=== PATIENT | male | born 1980 | race Caucasian/White ===

== ENCOUNTER → 2021-03-18 | Outpatient (CLI) | payer BC ==
--- NOTE | 2021-03-21 10:12 | XR ---
EXAMINATION TYPE: XR foot complete RT DATE OF EXAM: 03/18/2021 COMPARISON: NONE HISTORY: Soft tissue sore TECHNIQUE: Three views are submitted. FINDINGS: The osseous structures are intact. There is no acute fracture or dislocation. Hypertrophic arthrop athy first MTP. Hammertoe deformities are seen and there is spurring along the fifth metatarsal. Calcaneal spurs are noted. Appears to be soft tissue prominence adjacent first MTP. IMPRESSION: 1. Hypertrophic arthropathy first MTP. There is adjacent soft tissue edema.
== END | disposition home or self-care (01) ==
LOC: RADXRYALE 16:15
PROVIDERS: ATTEND Physician Assistant Medical
DX: M79.89 Other specified soft tissue disorders (principal); M12.871 Other specific arthropathies, not elsewhere classified, right ankle and foot

== ENCOUNTER 2024-03-06 20:23 | Emergency (ER) | payer BC, OTHER ==
[2024-03-06 20:47] VITALS: TEMP 98.1
--- NOTE | 2024-03-06 20:56 | XR ---
EXAMINATION TYPE: XR ankle complete RT DATE OF EXAM: 03/06/2024 8:47 PM CLINICAL INDICATION:Male, 43 years old with history of Injury; H COMPARISON: None TECHNIQUE: The right ankle is imaged in frontal, lateral and oblique projections. FINDINGS: There is a mildly displaced obliquely oriented fracture involving the medial aspect of the fibula wit h apex medial angulation. There is widening of the medial ankle joint space with tiny ossific fragmen ts in the region. The tibia appears intact. No evidence of subtalar joint subluxation. Kager's fat pa d is intact. Superficial soft tissue edema surrounding the ankle joint. IMPRESSION: 1. Mildly displaced and angulated fracture of the distal fibular metadiaphysis. 2. Widened medial ankle joint space with suspected avulsion injuries, most likely related to ligament ous disruption.
--- NOTE | 2024-03-06 22:56 | ED ---
Lower Extremity Injury HPI - General Chief Complaint: Extremity Injury, Lower Stated Complaint: broken ankle Time Seen by Provider: 03/06/24 21:30 Source: patient, RN notes reviewed Mode of arrival: ambulatory Limitations: no limitations - History of Present Illness Initial Comments: 43-year-old male presenting with right ankle pain x 1 hour. States he was walking on the stairs when his ankle bent underneath him and he heard a crack. Patient has extreme pain with weightbearing. Admits diffuse swelling around the ankle. Denies numbness or tingling. - Related Data Allergies Allergy/AdvReac Type Severity Reaction Status Date / Time No Known Allergies Allergy Verified 03/06/24 20:34 Review of Systems ROS Statement: Those systems with pertinent positive or pertinent negative responses have been documented in the HPI. ROS Other: All systems not noted in ROS Statement are negative. Past Medical History Past Medical History: Diabetes Mellitus Past Surgical History: No Surgical Hx Reported Past Psychological History: No Psychological Hx Reported Smoking Status: Never smoker Past Alcohol Use History: Occasional Past Drug Use History: None Reported General Exam Limitations: no limitations General appearance: alert, in no apparent distress Head exam: Present: atraumatic, normocephalic, normal inspection Eye exam: Present: normal appearance, PERRL, EOMI. Absent: scleral icterus, conjunctival injection, periorbital swelling ENT exam: Present: normal exam, mucous membranes moist Right Knee exam: Present: normal inspection, full ROM. Absent: tenderness, swelling Lower Leg exam: Present: normal inspection, full ROM. Absent: tenderness, swelling Ankle exam: Present: tenderness, swelling. Absent: normal inspection (Diffuse edema and tenderness along lateral and medial malleolus. Limited range of motion of the ankle. Full sensation of right foot and full range of motion of all digits. Dorsalis pedis pulses intact. Cap refill less than 2 seconds.), full ROM Foot/Toe exam: Present: normal inspection, full ROM. Absent: tenderness, swelling Course Vital Signs 03/06/24 03/06/24 20:32 23:23 Temperature 98.1 F Pulse Rate 100 86 Respiratory 20 16 Rate Blood Pressure 152/89 150/90 O2 Sat by Pulse 97 96 Oximetry Procedures - Orthopedic Joint Reduction Joint #1 Consent Obtained: verbal consent Side: right Joint Reduction Location: ankle Analgesia: none Technique Used: direct manipulation Post-Reduction Neuro Exam: intact Post-Reduction Vascular Exam: intact Post Reduction X-Ray Obtained: Yes Post Reduction X-Ray Results: reduced Splint Applied: Yes (Posterior and saddle splint applied to right ankle.) Patient Tolerated Procedure: well, no complications Additional Comments: Neurovascularly intact status post splint Medical Decision Making - Medical Decision Making Was pt. sent in by a medical professional or institution (, PA, CLOTH PAINTER, urgent care, hospital, or long term...) When possible be specific @ -No Did you speak to anyone other than the patient for history (EMS, parent, family, police, friend...)? What history was obtained from this source @ -Patient's supplemented history Did you review nursing and triage notes (agree or disagree)? Why? @ -I reviewed and agree with nursing and triage notes Were old charts reviewed (outside hosp., previous admission, EMS record, old EKG, old radiological studies, urgent care reports/EKG's, long term records)? Report findings @ -No old charts were reviewed Differential Diagnosis (chest pain, altered mental status, abdominal pain women, abdominal pain men, vaginal bleeding, weakness, fever, dyspnea, syncope, headache, dizziness, GI bleed, back pain, seizure, CVA, palpatations, mental health, musculoskeletal)? @ -Differential Musculoskeletal Muscular strain, contusion, ligament sprain, fracture, arthritis, septic arthritis, bursitis, cellulitis, muscle spasm, nerve compression, DVT, arterial occlusion, herpes zoster, electrolyte abnormality, tumor.... This is not meant to be in all inclusive list EKG interpreted by me (3pts min.). @ -None X-rays interpreted by me (1pt min.). @ -X-ray revealed mildly displaced and angulated fracture of distal fibular metadiaphysis with widened medial ankle joint space with suspected avulsion injury. Repeat x-ray postreduction revealed mildly displaced fracture of the distal fibula however appears improved CT interpreted by me (1pt min.). @ -None done U/S interpreted by me (1pt. min.). @ -None done What testing was considered but not performed or refused? (CT, X-rays, U/S, labs)? Why? @ -None What meds were considered but not given or refused? Why? @ -None Did you discuss the management of the patient with other professionals (professionals i.e. , PA, CLOTH PAINTER, lab, RT, psych nurse, social service technician, manager acquisition, teacher, media liaison officer, complex case manager)? Give summary @ -No Was smoking cessation discussed for >3mins.? @ -No Was critical care preformed (if so, how long)? @ -No Were there social determinants of health that impacted care today? How? (Homelessness, low income, unemployed, alcoholism, drug addiction, transportation, low edu. Level, literacy, decrease access to med. care, [facility], rehab)? @ -No Was there de-escalation of care discussed even if they declined (Discuss DNR or withdrawal of care, Hospice)? DNR status @ -No What co-morbidities impacted this encounter? (DM, HTN, Smoking, COPD, CAD, Cancer, CVA, ARF, Chemo, Hep., AIDS, mental health diagnosis, sleep apnea, morbid obesity)? @ -None Was patient admitted / discharged? Hospital course, mention meds given and route, prescriptions, significant lab abnormalities, going to OR and other pertinent info. @ -Patient was discharged. Patient was seen and evaluated for right ankle pain x 1 hour after injury walking on the stairs. Patient is neurovascularly intact. X-ray revealed mildly displaced and angulated fracture of distal fibular metadiaphysis with a widened medial ankle joint space with suspected avulsion injury. Reduction performed and posterior and saddle splint applied. Repeat x- ray continued to show mildly displaced fracture of distal tibia however appears improved. Patient is neurovascularly intact status post procedures. Discussed diagnosis of fibular fracture with patient and . Strict return/alarm symptoms discussed with patient and and they show understanding and agree to plan. Patient given Tylenol threes for pain. They were given Ortho follow- up. Discharged in stable condition. Case discussed with Dr. Rocha who was present during reduction and splinting. Undiagnosed new problem with uncertain prognosis? @ -No Drug Therapy requiring intensive monitoring for toxicity (Heparin, Nitro, Insulin, Cardizem)? @ -No Were any procedures done? @ -Reduction of ankle and posterior/stirrup splint applied Diagnosis/symptom? @ -Right distal fibular fracture Acute, or Chronic, or Acute on Chronic? @ -Acute Uncomplicated (without systemic symptoms) or Complicated (systemic symptoms)? @ -Uncomplicated Side effects of treatment? @ -No Exacerbation, Progression, or Severe Exacerbation? @ -No Poses a threat to life or bodily function? How? (Chest pain, [place], [place], pneumonia, PE, COPD, DKA, ARF, appy, cholecystitis, CVA, Diverticulitis, Homicidal, Suicidal, threat to staff... and all critical care pts) @ -No Disposition Clinical Impression: Fracture of distal end of fibula Disposition: HOME SELF-CARE Condition: Stable Instructions (If sedation given, give patient instructions): Ankle Fracture (ED) Additional Instructions: Please follow-up with Ortho in 1 to 3 days. Please return to the Emergency Department if symptoms worsen or any other concerns. Is patient prescribed a controlled substance at d/c from ED?: No Referrals: Charles Lakhani DO [Primary Care Provider] - 1-2 days Mati Hernandez DO [Doctor of Osteopathic Medicine] - 1-2 days Time of Disposition: 22:56
[2024-03-06] MEDS: ACET/COD 300 MG/30 MG STARTER PACK 6 TAB BTL PO STA (23:11)
[2024-03-06 23:58] VITALS: BP 150/90; PULSE 86; RESP 16
--- NOTE | 2024-03-07 00:02 | XR ---
EXAM: XR Right Ankle Complete, 3 or More Views CLINICAL HISTORY: ITS.REASON XR Reason: repeat xr s/p reduction TECHNIQUE: Frontal, lateral and oblique views of the right ankle. COMPARISON: Earlier same day. FINDINGS: Bones/joints: Mildly displaced fracture of the distal fibula. Widening of the medial ankle mortise measures 1.5 cm. No dislocation. Soft tissues: Unremarkable. IMPRESSION: Mildly displaced fracture of the distal fibula. Widening of the medial ankle mortise measures 1.5 cm. Consider further attempt at reduction.
== END 2024-03-06 23:54 | disposition home or self-care (01) ==
LOC: EC 20:23
DX: S82.831A Other fracture of upper and lower end of right fibula, initial encounter for closed fracture (principal); X50.1XXA Overexertion from prolonged static or awkward postures, initial encounter
CPT/HCPCS: 27818; 99283

== ENCOUNTER 2024-03-07 15:26 | Observation (INO) | payer BC, OTHER ==
[2024-03-07] MEDS ORDERED: NALOXONE 0.4 MG/ML 1 ML VIAL IV PRN (16:42)
[2024-03-07] MEDS ORDERED: MORPHINE SULFATE 4 MG/ML SYRINGE IV PRN (16:42)
[2024-03-07] MEDS ORDERED: ONDANSETRON 4 MG/2 ML VIAL IVP PRN (16:42)
--- NOTE | 2024-03-07 16:49 | ED ---
Recheck HPI - General Chief Complaint: Recheck/Abnormal Lab/Rx Stated Complaint: R leg injury Time Seen by Provider: 03/07/24 15:59 Source: patient, RN notes reviewed, old records reviewed Mode of arrival: ambulatory Limitations: no limitations - History of Present Illness Initial Comments: This is a 43-year-old male to the ER today. Patient [facility] for evaluation of right ankle fracture. Patient was seen in the emergency room after a fall and ankle fracture yesterday patient was placed in a splint after interval reduction and discharged home. Patient is complaining of no new symptoms. Patient did call orthopedics today for follow-up for evaluation and was sent to the emergency department for further evaluation and monitoring MD Complaint: other (Right ankle fracture) -: days(s) (1) Returns Today for: persistent/worsening pain related to initial visit Symptoms Since Prior Visit: no new symptoms Context: planned re-check Associated Symptoms: none Treatments Prior to Arrival: Given Pain Meds on - Related Data Home Medications Medication Instructions Recorded Confirmed Atorvastatin [Lipitor] 20 mg PO DAILY 03/07/24 03/07/24 Citalopram Hydrobromide [CeleXA] 40 mg PO DAILY 03/07/24 03/07/24 glipiZIDE [Glucotrol] 5 mg PO DAILY 03/07/24 03/07/24 lisinopriL [Zestril] 20 mg PO DAILY 03/07/24 03/07/24 sitaGLIPtin PHOS/metFORMIN HCL 1 tab PO BID 03/07/24 03/07/24 [Janumet Xr 50-1,000 mg Tablet] Previous Rx's Medication Instructions Recorded Aspirin 325 mg PO BID #60 tab 03/08/24 HYDROcodone/APAP 7.5-325MG [Foster 1 each PO Q4-6H PRN #28 tab 03/08/24 7.5] Allergies Allergy/AdvReac Type Severity Reaction Status Date / Time No Known Allergies Allergy Verified 03/07/24 17:39 Review of Systems ROS Statement: Those systems with pertinent positive or pertinent negative responses have been documented in the HPI. ROS Other: All systems not noted in ROS Statement are negative. Past Medical History Past Medical History: Diabetes Mellitus Past Surgical History: No Surgical Hx Reported Past Psychological History: No Psychological Hx Reported Smoking Status: Never smoker Past Alcohol Use History: Occasional Past Drug Use History: None Reported General Exam - General Exam Comments Initial Comments: Patient has positive dorsalis pedis and posterior tibialis pulses right ankle Limitations: no limitations General appearance: alert, in no apparent distress Head exam: Present: atraumatic, normocephalic, normal inspection Eye exam: Present: normal appearance, PERRL, EOMI. Absent: scleral icterus, conjunctival injection, periorbital swelling ENT exam: Present: normal exam, mucous membranes moist Neck exam: Present: normal inspection. Absent: tenderness, meningismus, lymphadenopathy Respiratory exam: Present: normal lung sounds bilaterally. Absent: respiratory distress, wheezes, rales, rhonchi, stridor Cardiovascular Exam: Present: regular rate, normal rhythm, normal heart sounds. Absent: systolic murmur, diastolic murmur, rubs, gallop, clicks GI/Abdominal exam: Present: soft, normal bowel sounds. Absent: distended, tenderness, guarding, rebound, rigid Extremities exam: Present: normal inspection, full ROM, normal capillary refill. Absent: tenderness, pedal edema, joint swelling, calf tenderness Back exam: Present: normal inspection Neurological exam: Present: alert, oriented X3, CN II-XII intact Psychiatric exam: Present: normal affect, normal mood Skin exam: Present: warm, dry, intact, normal color. Absent: rash Course Vital Signs 03/07/24 03/07/24 15:41 19:00 Temperature 98.4 F Pulse Rate 98 85 Respiratory 20 20 Rate Blood Pressure 139/91 147/85 O2 Sat by Pulse 99 98 Oximetry - Reevaluation(s) Reevaluation #1: 03/07/24 17:21 Medical records reviewed Reevaluation #2: 03/07/24 17:21 Patient symptoms unchanged Reevaluation #3: 03/07/24 17:21 Patient informed of results questions answered Reevaluation #4: Was pt. sent in by a medical professional or institution (, PA, COMBINATION MAN, urgent care, hospital, or detention...) When possible be specific @ -no Did you speak to anyone other than the patient for history (EMS, parent, family, police, friend...)? What history was obtained from this source @ -no Did you review nursing and triage notes (agree or disagree)? Why? @ -agree Are old charts reviewed (outside hosp., previous admission, EMS record, old EKG, old radiological studies, urgent care reports/EKG's, detention records)? Report findings @ -yes Differential Diagnosis (chest pain, altered mental status, abdominal pain women, abdominal pain men, vaginal bleeding, weakness, fever, dyspnea, syncope, headache, dizziness, GI bleed, back pain, seizure, CVA, palpatations, mental health, musculoskeletal)? @ -prior EKG interpreted by me (3pts min.). @ -yes X-rays interpreted by me (1pt min.). @ -yes negative for acute disease CT interpreted by me (1pt min.). @ -no U/S interpreted by me (1pt. min.). @ -no What testing was considered but not performed or refused? (CT, X-rays, U/S, labs)? Why? @ -none What meds were considered but not given or refused? Why? @ -none Did you discuss the management of the patient with other professionals (professionals i.e. , PA, COMBINATION MAN, lab, RT, psych nurse, social services director, supervisor typesetting, teacher, military source operations officer, medical case manager)? Give summary @ -no Was smoking cessation discussed for >3mins.? @ -no Was critical care preformed (if so, how long)? @ -no Were there social determinants of health that impacted care today? How? (Homelessness, low income, unemployed, alcoholism, drug addiction, transportation, low edu. Level, literacy, decrease access to med. care, correction, rehab)? @ -none Was there de-escalation of care discussed even if they declined (Discuss DNR or withdrawal of care, Hospice)? DNR status @ -no What co-morbidities impacted this encounter? (DM, HTN, Smoking, COPD, CAD, Cancer, CVA, ARF, Chemo, Hep., AIDS, mental health diagnosis, sleep apnea, morbid obesity)? @ -none Was patient admitted / discharged? Hospital course, mention meds given and route, prescriptions, significant lab abnormalities, going to OR and other pertinent info. @ - 43 male to ER for evaluation of severe ankle pain right ankle pain. Patient will be admitted for right ankle fracture dislocation, patient had fall yesterday will admit to surgery Admitted Undiagnosed new problem with uncertain prognosis? @ -no Drug Therapy requiring intensive monitoring for toxicity (Heparin, Nitro, Insulin, Cardizem)? @ -no Were any procedures done? @ -no Diagnosis/symptom? @ -Fall with fracture dislocation of ankle Acute, or Chronic, or Acute on Chronic? @ -Acute Uncomplicated (without systemic symptoms) or Complicated (systemic symptoms)? @ -Complicated Side effects of treatment? @ -no Exacerbation, Progression, or Severe Exacerbation? @ -exacerbation Poses a threat to life or bodily function? How? (Chest pain, [place], [place], pneumonia, PE, COPD, DKA, ARF, appy, cholecystitis, CVA, Diverticulitis, Homicidal, [place] icidal, threat to staff... and all critical care pts) @ -yes Limited right with dislocation of ankle - Consultations Consultation #1: Dr. Gibbs who will like this patient admitted for surgical evaluation and consultation Medical Decision Making - Medical Decision Making 43 male to ER for evaluation of severe ankle pain right ankle pain. Patient will be admitted for right ankle fracture dislocation, patient had fall yesterday will admit to surgery - Lab Data Result diagrams: 03/08/24 05:51 03/08/24 05:51 - EKG Data -: EKG Interpreted by Me (EKG is sinus 87 AR 138 QRS 94 QTc 387) - Radiology Data Radiology results: report reviewed (Right ankle acute fracture dislocation), i mage reviewed Disposition Clinical Impression: Fracture dislocation of right ankle, Fracture of distal end of fibula Disposition: ADMITTED IP TO THIS HOSP Condition: Fair Is patient prescribed a controlled substance at d/c from ED?: No Time of Disposition: 17:20
[2024-03-07] MEDS: SODIUM CHLORIDE 0.9% 1,000 ML IV SCH (17:08)
[2024-03-07] MEDS: MORPHINE SULFATE 4 MG/ML SYRINGE IV STA (17:09)
[2024-03-07 17:18] LABS: INR 0.8 (<1.2); Prothrombin Time 9.6 sec (10.0-12.5)
[2024-03-07 17:20] LABS: ALT 29 U/L (4-49); AST 27 U/L (17-59); African American GFR (CKD) >90 (>60 ml/min/1.73 sqM); Albumin 3.7 g/dL (3.5-5.0); Alkaline Phosphatase 100 U/L (38-126); Anion Gap 6 mmol/L; Blood Urea Nitrogen 21 mg/dL (9-20); Calcium 9.1 mg/dL (8.4-10.2); Carbon Dioxide 22 mmol/L (22-30); Chloride 106 mmol/L (98-107); Glucose 222 mg/dL (74-99); Non-African American GFR(CKD) >90 (>60 ml/min/1.73 sqM); Potassium 4.2 mmol/L (3.5-5.1); Sodium 134 mmol/L (137-145); Total Bilirubin 0.6 mg/dL (0.2-1.3); Total Protein 6.5 g/dL (6.3-8.2)
[2024-03-07 17:21] LABS: Basophils % (A) 0 %; Eosinophils # (A) 0.1 k/uL (0-0.7); Eosinophils % (A) 1 %; HCT 44.6 % (39.0-53.0); HGB 15.5 gm/dL (13.0-17.5); Lymphocytes # (A) 2.6 k/uL (1.0-4.8); Lymphocytes % (A) 22 %; MCH 31.1 pg (25.0-35.0); MCHC 34.8 g/dL (31.0-37.0); MCV 89.3 fL (80.0-100.0); Mean Platelet Volume 9.4; Monocytes # (A) 0.9 k/uL (0-1.0); Monocytes % (A) 7 %; Neutrophils # (A) 7.9 k/uL (1.3-7.7); Neutrophils % (A) 68 %; Platelet Count 214 k/uL (150-450); RBC 4.99 m/uL (4.30-5.90); WBC 11.7 k/uL (3.8-10.6)
--- NOTE | 2024-03-07 18:50 | XR ---
EXAMINATION TYPE: XR ankle limited RT DATE OF EXAM: 03/07/2024 COMPARISON: 03/06/2024 earlier exam HISTORY: Fracture TECHNIQUE: 2 view right ankle through a fiberglass splint FINDINGS: There is subluxation of the talus laterally approximately one half of the tibial shaft with . There is a long oblique fracture through the distal fibula. Overlying soft tissue swelling is prese nt. No additional fractures are evident. Calcaneal heel spurs are present. IMPRESSION: 1. Stable appearance of a subluxation of the talus laterally in relation to the distal right tibia. 2. Oblique fracture distal right fibula
[2024-03-07 20:58] LABS: Glucose,Whole Blood 164 mg/dL (70-110)
[2024-03-08 05:47] LABS: Glucose,Whole Blood 327 mg/dL (70-110)
[2024-03-08 09:02] LABS: Glucose,Whole Blood 303 mg/dL (70-110)
[2024-03-08] MEDS: LACTATED RINGERS 1,000 ML IV ONE (09:02)
[2024-03-08] MEDS: INSULIN ASPART (NovoLOG) 100 UNIT/ML VIAL SQ ONE ×2 (09:09→11:43)
[2024-03-08] MEDS: ONDANSETRON 4 MG/2 ML VIAL IVP ONE (09:09)
[2024-03-08 09:14] LABS: Basophils # (A) 0.05 X 10*3/uL (0.00-0.10); Basophils % (A) 0.5 %; Eosinophils # (A) 0.03 X 10*3/uL (0.04-0.35); Eosinophils % (A) 0.3 %; HCT 40.8 % (39.6-50.0); HGB 13.9 g/dL (13.0-17.0); Lymphocytes # (A) 2.72 X 10*3/uL (0.90-5.00); Lymphocytes % (A) 25.4 %; MCH 29.9 pg (27.0-32.0); MCHC 34.1 g/dL (32.0-37.0); MCV 87.7 FL (80.0-97.0); Mean Platelet Volume 12.1 FL (9.5-12.2); Monocytes # (A) 0.86 X 10*3/uL (0.20-1.00); NRBC Per 100 WBC 0 X 10*3/uL (0.00-0.01); Neutrophils # (A) 6.97 X 10*3/uL (1.80-7.70); Platelet Count 196 X 10*3/uL (140-440); RBC 4.65 X 10*6/uL (4.40-5.60); RDW 12.5 % (11.5-14.5); WBC 10.72 X 10*3/uL (4.50-10.00)
[2024-03-08] MEDS ORDERED: fentaNYL (PF) 50 MCG/ML 2 ML AMP ONE (09:20)
[2024-03-08] MEDS ORDERED: MIDAZOLAM 2 MG/2 ML VIAL ONE (09:20)
[2024-03-08] MEDS ORDERED: SUCCINYLCHOLINE CHLORIDE 200 MG/10 ML VIAL IV ONE (09:20)
[2024-03-08] MEDS ORDERED: LIDOCAINE 1% INJ 10MG/ML (20 ML MDV) ONE (09:20)
[2024-03-08] MEDS ORDERED: PROPOFOL 10 MG/ML 20 ML VIAL IV ONE (09:20)
--- NOTE | 2024-03-08 09:22 | P.HPOR ---
History of Present Illness H&P Date: 03/08/24 This is a 43 year old male who sustained a right ankle injury on 03/08/24 while walking down the stairs. He was seen in the ED that same day/night where attempt at closed reduction was performed and was discharged home. Imaging was viewed after outpatient referral was arranged and prior to patient following up in office the reduction was found to not be adequate and he returned to the ED for repeat reduction, possible ex-fix vs ORIF. He is a diabetic with peripheral neuropathy. He states he has not been in really any pain due to the lack of sensation in the foot. Past Medical History Past Medical History: Diabetes Mellitus History of Any Multi-Drug Resistant Organisms: None Reported Past Surgical History: No Surgical Hx Reported Additional Past Surgical History / Comment(s): toe removal Past Anesthesia/Blood Transfusion Reactions: No Reported Reaction Past Psychological History: No Psychological Hx Reported Smoking Status: Current every day smoker Past Alcohol Use History: Occasional Past Drug Use History: None Reported Medications and Allergies Home Medications Medication Instructions Recorded Confirmed Type Atorvastatin [Lipitor] 20 mg PO DAILY 03/07/24 03/07/24 History Citalopram Hydrobromide [CeleXA] 40 mg PO DAILY 03/07/24 03/07/24 History glipiZIDE [Glucotrol] 5 mg PO DAILY 03/07/24 03/07/24 History lisinopriL [Zestril] 20 mg PO DAILY 03/07/24 03/07/24 History sitaGLIPtin PHOS/metFORMIN HCL 1 tab PO BID 03/07/24 03/07/24 History [Janumet Xr 50-1,000 mg Tablet] Allergies Allergy/AdvReac Type Severity Reaction Status Date / Time No Known Allergies Allergy Verified 03/07/24 17:39 Physical Examination Osteopathic Statement: *. No significant issues noted on an osteopathic structural exam other than those noted in the History and Physical/Consult. - Ankle & Foot right Ankle appearance: swelling (Bruising/swelling present around medial/lateral ankle. EHL/FHL intact. Decreased sensation in L2-S1 distribution. 2+/4 DP/PT pulses palpated. Medial plantar callous present around first MTP joint.) Foot appearance: swelling Foot swelling: dorsal, plantar, medial, lateral Tenderness with palpation: anteromedial ankle, lateral ankle Results - Labs Labs: Abnormal Lab Results - Last 24 Hours (Table) 03/07/24 03/07/24 03/07/24 Range/Units 17:00 17:00 17:00 WBC 11.7 H (3.8-10.6) k/uL Neutrophils # 7.9 H (1.3-7.7) k/uL PT 9.6 L (10.0-12.5) sec Sodium 134 L (137-145) mmol/L BUN 21 H (9-20) mg/dL Creatinine 0.56 L (0.66-1.25) mg/dL Glucose 222 H (74-99) mg/dL POC Glucose (mg/dL) (70-110) mg/dL 03/07/24 03/08/24 Range/Units 20:57 05:46 WBC (3.8-10.6) k/uL Neutrophils # (1.3-7.7) k/uL PT (10.0-12.5) sec Sodium (137-145) mmol/L BUN (9-20) mg/dL Creatinine (0.66-1.25) mg/dL Glucose (74-99) mg/dL POC Glucose (mg/dL) 164 H 327 H (70-110) mg/dL H & H 03/07/24 Range/Units 17:00 Hgb 15.5 (13.0-17.5) gm/dL Hct 44.6 (39.0-53.0) % Coagulation 03/07/24 Range/Units 17:00 INR 0.8 (<1.2) Result Diagrams: 03/08/24 05:51 03/07/24 17:00 Assessment and Plan Assessment: 1.) Right ankle fracture dislocation 2.) Uncontrolled diabetes Plan: Case findings and imaging was discussed with the patient. We discussed the current alignment of his ankle fracture is outside of acceptable limits and he will require repeat reduction vs ex fix vs ORIF depending on soft tissue swelling. Risks and benefits of surgery including bleeding, infection, damage to surrounding tissue, need for further surgery was discussed and he wishes to proceed with surgical intervention. We discussed if definitive treatment is not able to be performed due to soft tissue swelling he will require definitive fixation in the near future. We discussed the complexity of his issue being that he is an uncontrolled diabetic and that healing can take several months and he is at a high risk for infection and wound complications. -Mati Hernandez DO Orthopedic Surgeon
[2024-03-08 09:25] LABS: ALT 27 U/L (10-49); AST 18 U/L (14-35); Albumin 3.6 g/dL (3.8-4.9); Albumin/Globulin Ratio 1.57 Ratio (1.60-3.17); Alkaline Phosphatase 87 U/L (41-126); BUN/Creat Ratio 22.86 Ratio (12.00-20.00); Calcium 8.7 mg/dL (8.7-10.3); Carbon Dioxide 22.2 mmol/L (21.6-31.8); Chloride 104 mmol/L (96-109); Globulin 2.3 g/dL (1.6-3.3); Glucose 308 mg/dL (70-110); Magnesium 1.6 mg/dL (1.5-2.4); Phosphorus 3.2 mg/dL (2.4-5.1); Potassium 4.5 mmol/L (3.5-5.5); Sodium 137 mmol/L (135-145); Total Bilirubin 0.4 mg/dL (0.3-1.2); Total Protein 5.9 g/dL (6.2-8.2)
[2024-03-08] MEDS ORDERED: HYDROcodone/APAP 7.5-325MG 1 EACH TAB PO PRN (10:02)
--- NOTE | 2024-03-08 10:17 | P.DS ---
Providers Date of admission: 03/07/24 16:43 Expected date of discharge: 03/08/24 Attending physician: Mati Hernandez DO Consults: 03/08/24 08:38 Consult Physician Routine Consulting Provider: Sj Dumont Reason/Comments: medical management Do you want consulting provider notified?: Yes Primary care physician: [facility] Course: Hospital Course: The patient was evaluated preoperatively and found to have the diagnosis of right ankle fracture with dislocation. They underwent appropriate preoperative care and were willing to undergo the intended procedure. They underwent a successful right ankle closed reduction with immobilization, were recovered appropriately and sent to the floor. Their pain was well controlled through their stay and they were started on appropriate medications, DVT ppx modalities, activity and dietary needs. Labs were monitored closely. Recommendation of home for this patient and treating providers agree with this care path. The patient will be discharged home with appropriate medications, instructions and follow-up information and in stable condition. Patient Condition at Discharge: Fair Plan - Discharge Summary Discharge Rx Participant: No New Discharge Prescriptions: New HYDROcodone/APAP 7.5-325MG [[place] 7.5] 1 each PO Q4-6H PRN #28 tab PRN Reason: Pain Aspirin 325 mg PO BID #60 tab No Action sitaGLIPtin PHOS/metFORMIN HCL [Janumet Xr 50-1,000 mg Tablet] 1 tab PO BID glipiZIDE [Glucotrol] 5 mg PO DAILY Atorvastatin [Lipitor] 20 mg PO DAILY lisinopriL [Zestril] 20 mg PO DAILY Citalopram Hydrobromide [CeleXA] 40 mg PO DAILY Discharge Medication List Atorvastatin [Lipitor] 20 mg PO DAILY 03/07/24 [History] Citalopram Hydrobromide [CeleXA] 40 mg PO DAILY 03/07/24 [History] glipiZIDE [Glucotrol] 5 mg PO DAILY 03/07/24 [History] lisinopriL [Zestril] 20 mg PO DAILY 03/07/24 [History] sitaGLIPtin PHOS/metFORMIN HCL [Janumet Xr 50-1,000 mg Tablet] 1 tab PO BID 03/07/24 [History] Aspirin 325 mg PO BID #60 tab 03/08/24 [Rx] HYDROcodone/APAP 7.5-325MG [[place] 7.5] 1 each PO Q4-6H PRN #28 tab 03/08/24 [Rx] Follow up Appointment(s)/Referral(s): Charles Lakhani DO [Primary Care Provider] - 1-2 days Mati Hernandez DO [Doctor of Osteopathic Medicine] - 03/14/24 Patient Instructions/Handouts: Closed Reduction (GEN) Activity/Diet/Wound Care/Special Instructions: Prescription for knee scooter placed in chart. Orthopedic Discharge Instructions: -Keep splint Clean and Dry -Non weight bearing of Left lower extremity with walker / crutches until follow- up. -Ice and elevate when necessary. Do not exceed 20 minutes per hour with ice pack. -Pain meds and anticoagulants per prescription. -Pain medication has potential to cause constipation. Increase oral fluid and fiber intake. Contact primary care provider if you have not had a bowel movement within 48 hours after discharge. -Follow up in office on 03/14/[address] Hernandez -Contact [facility] with any questions, . Discharge Disposition: HOME SELF-CARE
[2024-03-08 10:20] LABS: Glucose,Whole Blood 280 mg/dL (70-110)
[2024-03-08 10:53] VITALS: RESP 16; TEMP 97.8
--- NOTE | 2024-03-08 11:02 | P.OP ---
Date of Procedure: 03/08/24 Preoperative Diagnosis: 1.) Right ankle fracture/dislocation Postoperative Diagnosis: 1.) Right ankle fracture/dislocation Procedure(s) Performed: 1.) Closed reduction and splint application of right ankle fracture/dislocation Anesthesia: ARMINDA Surgeon: Mati Hernandez Youth Corrections Officer #1: Madeline Narayan Estimated Blood Loss (ml): 0 Pathology: none sent Condition: stable Disposition: PACU Description of Procedure: This is a 43 year old male with a history of uncontrolled diabetes who presents today for closed reduction and immobilization of his right ankle fracture dislocation after previous failed attempt at closed reduction was performed in the ED. Risks and benefits of surgery were discussed with the patient including bleeding, damage to surrounding tissue, infection, need for further surgery as well as risks of anesthesia including pulmonary embolism and even and the patient wished to proceed with surgical intervention. The patient was seen in the pre-operative area by myself. Consent and H&P were completed and updated. The correct extremity was marked in the pre-operative area by myself and all other questions were answered. Operative Narrative: The patient was brought to the operating room by the department of anesthesia. They were transfered to the operative table and all morelia proimences were well padded. Pre-operative time out was performed indicating the correct patient, procedure and laterality. All in the room agreed. The patient was drifted off to sleep under general anesthesia Closed reduction maneuver was performed and near anatomic reduction of the tibiotalar joint was achieved and confirmed to now be adequately reduced on AP, lateral and mortise views. An AO plaster splint was then applied with appropriate mold. After the splint was set confirmation x-rays were taken to confirm reduction was held. The patient was then woken by the department of anesthesia and transferred to PACU in stable condition. Mati Hernandez D.O. Orthopedic Hand/Upper Extremity Surgeon
--- NOTE | 2024-03-08 11:22 | XR ---
EXAMINATION TYPE: XR ankle limited RT DATE OF EXAM: 03/08/2024 COMPARISON: None HISTORY: Fracture TECHNIQUE: Fluoroscopy is provided for closed reduction. FINDINGS: There may be a small avulsion inferior to the medial malleolus. Fracture appears to be at t he distal fibula. Ankle mortise appears intact. Fluoroscopy time: 8.6 seconds. DAP: 0.1665 Images: 3 IMPRESSION: 1. Fluoroscopy for procedure
--- NOTE | 2024-03-08 11:23 | FL ---
Fluoroscopy INDICATION: Pain FINDINGS: Fluoroscopy time: 8 seconds. Total dose area product (DAP) in uGy*m?, mGy*cm? (or similar): 0.1665 Images obtained: 0. IMPRESSION: 1. Documentation of fluoroscopy.
[2024-03-08 15:01] VITALS: BP 157/88; PULSE 97
[2024-03-08] MEDS ORDERED: ASPIRIN 325 MG TAB PO SCH (21:00)
== END 2024-03-08 15:13 | disposition home or self-care (01) ==
LOC: EC 15:26 → 4SSUR 16:43 → INTOOBSV 16:43 → 4SSUR 17:52 → UNDODISIN 03-08 15:13
PROVIDERS: ADMIT Orthopaedic Surgery Hand Surgery; ATTEND Orthopaedic Surgery Hand Surgery
DX: S82.431A Displaced oblique fracture of shaft of right fibula, initial encounter for closed fracture (principal); S93.01XA Subluxation of right ankle joint, initial encounter; W19.XXXA Unspecified fall, initial encounter; E11.65 Type 2 diabetes mellitus with hyperglycemia; E11.42 Type 2 diabetes mellitus with diabetic polyneuropathy; F17.200 Nicotine dependence, unspecified, uncomplicated; Z79.84 Long term (current) use of oral hypoglycemic drugs; Z79.82 Long term (current) use of aspirin; Z79.899 Other long term (current) drug therapy
CPT/HCPCS: 99285; 93005; 80053 ×2; 83735; 84100; 85025 ×2; 85610; 85730; 73600 ×2; 27788; G0378 ×2; J2250; J0330; J2405; J2001; J3010; J2704

== ENCOUNTER 2024-03-19 10:44 | Day surgery (SDC) | payer BC, OTHER ==
--- NOTE | 2024-03-18 10:17 | P.HPOR ---
History of Present Illness H&P Date: 03/18/24 Subjective: This is a 43 year old male that presents today for initial evaluation regarding a right ankle injury that occurred on 03/06/24 he was walking down the stairs and inverted his ankle and felt a pop and had immediate pain and swelling. He was seen at the emergency department on the day of his injury where attempted close reduction was performed, however, it was found to not have been successfully reduced and he required closed reduction and immobilization in the operating room on 03/08/24. He has a history of uncontrolled diabetes and has had toe amputations due to infection on the contralateral foot. He states he has minimal sensation in the lower extremity due to diabetic neuropathy. He works as a hole digger truck driver. Physical Examination: RLE: 02/16 EHL/FHL. Diminished sensation due to peripheral diabetic neuropathy L5- S1. 2+/4 DP/PT pulses palpated. NTTP over lateral/medial malleolus. Callousing over first MCP joint on plantar surface of foot. Imaging: X-Rays of the right ankle taken from closed reduction in the operating room demonstrate a displaced distal fibula fracture, overall alignment improved with a congruent ankle mortise after reduction. Impression: 1.) Right reddy B distal fibula fracture Plan: Diagnosis and treatment options were discussed with the patient. We discussed his ankle fracture will require surgical intervention and I recommend a right ankle fracture open reduction internal fixation. Risks and benefits of surgery including bleeding, infection, damage to surrounding tissue, need for further surgery, residual numbness were discussed and the patient wished to go forward with surgery. We discussed he is at a high risk for wound complications and delayed healing due to his uncontrolled diabetes and that adherence to post operative non-weightbearing restrictions is imperative to minimize the risk of complications. He is to remain non-weightbearing and rest, ice and elevate the ankle. The patient was agreeable with this plan of action. I anticipate 2 months off of work before he is able to drive, we discussed depending on bone healing this may need to be prolonged. -Mati Hernandez DO Orthopedic Surgeon Past Medical History Past Medical History: Diabetes Mellitus, Hyperlipidemia, Hypertension History of Any Multi-Drug Resistant Organisms: None Reported Past Surgical History: No Surgical Hx Reported Additional Past Surgical History / Comment(s): toe removal , closed reduction to rt ankle Past Anesthesia/Blood Transfusion Reactions: No Reported Reaction Smoking Status: Current some day smoker - Past Family History Father Family Medical History: No Reported History Medications and Allergies Home Medications Medication Instructions Recorded Confirmed Type Atorvastatin [Lipitor] 20 mg PO DAILY 03/07/24 03/14/24 History Citalopram Hydrobromide [CeleXA] 40 mg PO DAILY 03/07/24 03/14/24 History glipiZIDE [Glucotrol] 5 mg PO DAILY 03/07/24 03/14/24 History lisinopriL [Zestril] 20 mg PO DAILY 03/07/24 03/14/24 History sitaGLIPtin PHOS/metFORMIN HCL 1 tab PO BID 03/07/24 03/14/24 History [Janumet Xr 50-1,000 mg Tablet] Aspirin 325 mg PO BID #60 tab 03/08/24 03/14/24 Rx HYDROcodone/APAP 7.5-325MG [[place] 1 each PO Q4-6H PRN #28 tab 03/08/24 03/14/24 Rx 7.5] Allergies Allergy/AdvReac Type Severity Reaction Status Date / Time No Known Allergies Allergy Verified 03/14/24 15:25 Physical Examination Osteopathic Statement: *. No significant issues noted on an osteopathic structural exam other than those noted in the History and Physical/Consult.
[~2024-03-19 10:44] MED LIST: HYDROmorphone 0.5 MG/0.5 ML SYRINGE IVP PRN; fentaNYL (PF) 50 MCG/ML 2 ML AMP IV PRN
[2024-03-19] MEDS: IV FLUID CONTINUATION 1,000 ML IV ONE (11:04)
[2024-03-19] MEDS: LACTATED RINGERS 1,000 ML IV SCH (11:04)
[2024-03-19 11:06] LABS: Glucose,Whole Blood 325 mg/dL (70-110)
[2024-03-19] MEDS: fentaNYL (PF) 50 MCG/1 ML VIAL IVP ONE (11:20)
[2024-03-19] MEDS: MIDAZOLAM 2 MG/2 ML VIAL IVP ONE (11:20)
[2024-03-19] MEDS: INSULIN ASPART (NovoLOG) 100 UNIT/ML VIAL SQ ONE (11:23)
[2024-03-19] MEDS ORDERED: ONDANSETRON 4 MG/2 ML VIAL ONE (11:37)
[2024-03-19] MEDS ORDERED: HYDROmorphone (PF) 1 MG/ML ONE (11:37)
[2024-03-19] MEDS ORDERED: PHENYLEPHRINE 10 MG/ML VIAL ONE (11:37)
[2024-03-19] MEDS ORDERED: ePHEDrine 50 MG/ML 1 ML VIAL ONE (11:37)
[2024-03-19] MEDS ORDERED: SODIUM CHLORIDE 0.9% (PF) 10 ML VIAL ONE (11:37)
[2024-03-19] MEDS ORDERED: PROPOFOL 10 MG/ML 20 ML VIAL IV ONE (11:37)
[2024-03-19] MEDS ORDERED: fentaNYL (PF) 50 MCG/ML 2 ML AMP ONE (11:37)
[2024-03-19] MEDS ORDERED: SUCCINYLCHOLINE CHLORIDE 200 MG/10 ML VIAL IV ONE (11:37)
[2024-03-19] MEDS ORDERED: LIDOCAINE 1%-EPI 1:100,000 20 ML VIAL ONE (11:37)
[2024-03-19] MEDS ORDERED: VECURONIUM 10 MG VIAL IV ONE (11:37)
[2024-03-19] MEDS ORDERED: LIDOCAINE 1% INJ 10MG/ML (20 ML MDV) ONE (11:37)
[2024-03-19] MEDS ORDERED: ROPIVACAINE 5 MG/ML 30 ML VIAL ONE (11:37)
[2024-03-19] MEDS ORDERED: NEOSTIGMINE 1 MG/ML 10 ML VIAL ONE (11:37)
[2024-03-19] MEDS ORDERED: GLYCOPYRROLATE 0.2 MG/ML 2 ML VIAL ONE (11:37)
[2024-03-19] MEDS: ceFAZolin 3 GM in SODIUM CHLORIDE 0.9% 100 ML IVPB PRN (11:42)
--- NOTE | 2024-03-19 12:34 | P.ANPRN ---
Procedure Note - Anesthesia - Nerve Block Performed Right Adductor Canal Single Time Out Performed: Yes Date of Procedure: 03/19/24 Procedure Start Time: : Procedure Stop Time: : Location of Patient: PreOp Indication: Acute Post-Operative Pain Sedation Type: Sedate with meaningful contact maintained Preparation: Sterile Prep Position: Supine Needle Types: Pajunk Needle Gauge: 21 Ultrasound used to visualize needle placement: Yes Ultrasound used to observe medication spread: Yes Injectate: 0.5% Ropivacaine (see comment for volume) (20 ml + 10 ml Lidocaine with epi 1/200 k) Blood Aspirated: No Pain Paresthesia on Injection Noted: No Resistance on Injection: Normal Image Stored and Saved: Yes Events: Uneventful and Well Tolerated
--- NOTE | 2024-03-19 12:36 | P.ANPRN ---
Procedure Note - Anesthesia - Nerve Block Performed Right Popliteal Single Time Out Performed: Yes Date of Procedure: 03/19/24 Procedure Start Time: 11:29 Procedure Stop Time: 11:38 Location of Patient: PreOp Indication: Acute Post-Operative Pain, Requested by Surgeon Sedation Type: Sedate with meaningful contact maintained Preparation: Sterile Prep Position: Left Lateral Needle Types: Pajunk Needle Gauge: 21 Ultrasound used to visualize needle placement: Yes Ultrasound used to observe medication spread: Yes Injectate: 0.5% Ropivacaine (see comment for volume) (20 ml + 10 ml Lidocaine 1% with epi 1/200 K) Blood Aspirated: No Pain Paresthesia on Injection Noted: No Resistance on Injection: Normal Image Stored and Saved: Yes Events: Uneventful and Well Tolerated
[2024-03-19] MEDS: LACTATED RINGERS 1,000 ML IV ONE (12:54)
--- NOTE | 2024-03-19 13:36 | XR ---
EXAMINATION TYPE: XR ankle limited RT Intraoperative/procedural fluoroscopic services were provided. Total fluoroscopy time is 13.5 seconds with a total of 3 submitted images to PACS. Please see the ope rative/procedural note for further details. DAP: 0.1913 Gycm2
[2024-03-19 13:56] LABS: Glucose,Whole Blood 240 mg/dL (70-110)
[2024-03-19 13:59] VITALS: TEMP 97.4
--- NOTE | 2024-03-19 14:45 | P.OP ---
Date of Procedure: 03/19/24 Preoperative Diagnosis: Right ankle distal fibula fracture Postoperative Diagnosis: Right ankle distal fibula fracture Procedure(s) Performed: Right ankle distal fibula fracture open reduction internal fixation Implants: Ana Lilia Variax distal fibular locking plate Anesthesia: ARMINDA regional Surgeon: Mati Hernandez Senior Advisor #1: Arie Baker Estimated Blood Loss (ml): 10 Pathology: none sent Condition: stable Disposition: PACU Description of Procedure: This is a 43 year old male who sustained a right ankle injury and presents today for surgical intervention due to displacement and instability of her fracture pattern. Risks and benefits of surgery were discussed with the patient including bleeding, damage to surrounding tissue, infection, need for further surgery as well as risks of anesthesia including pulmonary embolism and even and the patient wished to proceed with surgical intervention. The patient was seen in the pre-operative area by myself. Consent and H&P were completed and updated. The correct extremity was marked in the pre-operative area by myself and all other questions were answered. Operative Narrative: The patient was brought to the operating room by the department of anesthesia. They were transferred safely to the operating table, all bony prominences were well padded. Bone foam was placed under the operative leg and a bump under the ipsilateral hip was placed. Pre-operative antibiotics were given prior to skin incision. The patient was then drifted off to sleep by the department of anesthesia. A nonsterile tourniquet was then applied to the operative extremity and the left lower extremity was then prepped and draped in normal sterile fashion. Pre-operative time out was performed indicating the correct patient, procedure and laterality. All in the room agreed. The operative extremity was the exsanguinated with an esmarch bandage and the tourniquet was inflated to 250mmHg. Upon taking down the ankle splint a medial 2x2cm partial thickness pressure ulcer was discovered that had developed around the medial malleolar region. There was no exposed bone, muscle or tendon present and with no signs of infection. The wound was well outside of the planned lateral incision therefore decision was made to proceed with ORIF of the distal fibula. Lateral incision centered over the lateral fibula was made with 15 blade scalpel. Blunt dissection down through subcutaneous tissues was performed with Sterling scissors and bovie cautery was utilized for hemostasis. Periosteum was incised along the lateral boarder of the distal fibula to reveal the oblique fracture pattern of the distal fibula. Care was taken to bluntly dissect proximally to avoid disrupting any possible branches of the superficial peroneal nerve. There was anterior comminution at the enrirque-inferior portion of the fracture. Irrigation, Feliz tip suction and curette was used to distract the fracture fragments and clear out the fracture hematoma and small morelia pieces of comminution present anterior that were blocking reduction of the 2 main fragments. Focus was then on achieving interfragmentary compression with lag screw across the fracture site. Pointed reduction clamp was used to reduce the fracture fragments and length and rotation was restored. Using a drill sleeve guide, a 3.5 mm glide hole was drilled in the near cortex perpendicular to the fracture site followed by a 2.5mm far cortex hole and a 3.5mm lag screw was inserted across the fracture site with good compression. Pointed reduction clamp was removed and no fracture movement was appreciated. A Ana Lilia distal fibular locking plate was then pinned into place to work as a neutralization plate. Nonlocking screws were drilled proximally and unicortical drilling was performed distal to the fracture site in order to avoid the distal talofibular articulation. Adequate plate contour and reduction was appreciated on imaging after all screws were inserted. After adequate fixation of the distal fibula fracture an external rotation stress test was performed and there was no appreciable gapping of the medial clear space and no widening of the syndesmosis. Cotton test was performed and no gapping at the syndesmosis was appreciated. The wound was then copiously irrigated and subcutaneous closure was performed with 2-0 Vicryl followed by 2-0 Nylon suture on skin in a horizontal mattress fashion. The medial ankle wound was probed and did not reach full thickness depth. Bacitracin and adaptic was placed over the pressure wound. Sterile dressing consisting of Adaptic, ABD, cast padding and AO plaster splint was applied. The patient was then woken by the department of anesthesia and transferred to PACU in stable condition. Arie FRANCIS was present for the case and assisted in major portions of the case and assisted in fracture reduction, retraction and placement of hardware and protection of vital neurovascular structures. Mati Hernandez D.O. Orthopedic Surgeon
[2024-03-19 15:08] VITALS: BP 100/60; PULSE 88; RESP 18
== END 2024-03-19 15:29 | disposition home or self-care (01) ==
LOC: OR 10:44
PROVIDERS: ATTEND Orthopaedic Surgery Hand Surgery
DX: S82.831A Other fracture of upper and lower end of right fibula, initial encounter for closed fracture (principal); G89.18 Other acute postprocedural pain; E11.42 Type 2 diabetes mellitus with diabetic polyneuropathy; E11.69 Type 2 diabetes mellitus with other specified complication; E78.5 Hyperlipidemia, unspecified; I10 Essential (primary) hypertension; F17.200 Nicotine dependence, unspecified, uncomplicated; Z79.82 Long term (current) use of aspirin; Z79.84 Long term (current) use of oral hypoglycemic drugs; Z79.899 Other long term (current) drug therapy; X50.1XXA Overexertion from prolonged static or awkward postures, initial encounter; Y93.01 Activity, walking, marching and hiking
CPT/HCPCS: 64447; 64445; 73600; 27792; C1713; J2250; J0330; J2710; J0690; J2405; J2001; J3010 ×2; J1170; J2795; J2704; J2371